=== PATIENT | female | born 1995 | race Caucasian/White ===

== ENCOUNTER 2017-02-25 07:57 | Day surgery (SDC) | payer BC ==
[2017-02-22 13:33] VITALS: BMI 24.1
[2017-02-25] MEDS ORDERED: PROPOFOL 20 ML ONE ×4 (08:47)
[2017-02-25 09:46] VITALS: TEMP 98.4
[2017-02-25 10:57] VITALS: BP 118/70; PULSE 86
--- NOTE | 2017-02-26 12:00 | PATH ---
Surgical Pathology Report Patient Name: PRIMITIVO JACKSON [facility]. Rec. #: [id number] /Age/Gender: 1995 (Age: 21) / F Account: [id number] Location: [facility] [place] Taken: 02/25/2017 Received: 02/25/2017 Reported: 02/26/2017 Physicians: Mike Castillo M.D. Specimen(s) Received A: BX BULB AND 2ND PORTION DUODENUM B: BX ANTRUM C: BX DISTAL AND MILD ESOPHAGUS Clinical History Preoperative diagnosis: Dysphagia, dyspepsia, acid reflux Postoperative diagnosis: Nonerosive reflux Final Diagnosis A. DUODENUM, SECOND PORTION AND BULB, BIOPSY: NONSPECIFIC ACUTE AND CHRONIC DUODENITIS. NO HISTOLOGIC EVIDENCE OF GLUTEN SENSITIVE ENTEROPATHY (CELIAC SPRUE) IDENTIFIED. B. STOMACH, ANTRUM, BIOPSY: GASTRIC ANTRAL MUCOSA WITH NO PATHOLOGIC CHANGES. IMMUNOSTAIN FOR H. PYLORI IS NEGATIVE. C. ESOPHAGUS, DISTAL AND MID, BIOPSY: SQUAMOUS EPITHELIUM WITH NO PATHOLOGIC CHANGES. NO INTESTINAL METAPLASIA IDENTIFIED (NO RAYMOND'S IDENTIFIED). NO EOSINOPHILIC ESOPHAGITIS IDENTIFIED. Electronically Signed Moe Lomeli M.D. Gross Description A. Received in formalin, labeled "biopsy bulb and second portion of duodenum" are 4 baca, irregular portions of soft tissue ranging from 0.2-0.5 cm. in greatest dimension. The specimens are submitted in toto in one cassette. B. Received in formalin, labeled "biopsy antrum" is a baca, irregular portion of soft tissue measuring 0.4 cm. in greatest dimension. The specimen is submitted in toto in one cassette. C. Received in formalin, labeled "biopsy distal and mid esophagus" are 4 baca, irregular portions of soft tissue ranging from 0.3-0.9 cm. in greatest dimension. The specimens are submitted in toto in one cassette. 02/25/201702/25/2017
== END 2017-02-25 10:57 | disposition home or self-care (01) ==
LOC: JASU-ENDO 07:57
PROVIDERS: ATTEND Internal Medicine Gastroenterology
PROC: 0DB68ZX Excision of Stomach, Via Natural or Artificial Opening Endoscopic, Diagnostic (ICD-10-PCS; 2017-02-25)
PROC: 0DB28ZX Excision of Middle Esophagus, Via Natural or Artificial Opening Endoscopic, Diagnostic (ICD-10-PCS; 2017-02-25)
PROC: 0DB38ZX Excision of Lower Esophagus, Via Natural or Artificial Opening Endoscopic, Diagnostic (ICD-10-PCS; 2017-02-25)
PROC: 0DB98ZX Excision of Duodenum, Via Natural or Artificial Opening Endoscopic, Diagnostic (ICD-10-PCS; principal; 2017-02-25 08:30)
DX: K21.0 Gastro-esophageal reflux disease with esophagitis (principal)
CPT/HCPCS: 84703; 88305-TC

== ENCOUNTER 2017-03-04 15:33 | Emergency (ER) | payer OTHER, BC ==
[2017-03-04] MEDS ORDERED: IBUPROFEN 600 MG TABLET (FP) PO ONE ×2 (15:54→16:40)
[2017-03-04 15:55] VITALS: BP 116/60; PULSE 86; TEMP 98.1; BMI 24.1
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
[2017-03-04] MEDS ORDERED: IBUPROFEN 100 MG/5 ML UNIT DOSE CUPS ONE (16:42)
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
== END 2017-03-04 17:04 | disposition home or self-care (01) ==
LOC: JERFT 15:33
DX: S66.911A Strain of unspecified muscle, fascia and tendon at wrist and hand level, right hand, initial encounter (principal); V43.62XA Car passenger injured in collision with other type car in traffic accident, initial encounter; Y93.89 Activity, other specified; Y92.410 Unspecified street and highway as the place of occurrence of the external cause
CPT/HCPCS: 73110-TC-RT; 73130-TC-RT; 84703; 99281-25

== ENCOUNTER 2018-04-28 17:38 | Emergency (ER) | payer BC | END 2018-04-28 19:41 | disposition home or self-care (01) | LOC: JERFT 17:38 ==

== ENCOUNTER 2018-05-03 12:57 | Emergency (ER) | payer BC ==
--- NOTE | 2018-05-03 13:00 | PDOC ---
History of Present Illness - General Chief Complaint: Cold Symptoms Stated Complaint: COUGH Time Seen by Provider: 05/03/18 12:59 History Source: Patient Exam Limitations: No Limitations - History of Present Illness Initial Comments: 23 yo F w a pmh of GERD presents to the ER after a week of generalized fatigue, subjective fevers, chills, headaches, bodyaches and myalgias, a dry cough, SOB and difficulty breathing, pleuritic chest pain which is worse when she coughs, nasal congestion, and rhinorrea. She went to the [facility] er earlier this week and had a flu swab done which was negative. She was treated with tamiflu anyways bc her symptoms were very suggestive. She finished the 5 day course of tamiflu yesterday but her cough and symptoms have only worsened to the point where she is extremely uncomfortable, cannot eat, feels nauseous and vomiting twice - once on Sat and again morning - both NBNB. She spoke with her PCP yesterday who told her to take mucinex and gave her a Z pack which she started taking this morning. She says the mucinex has not helped. She has been taking tylenol and motrin every day for her symptoms. She is here in the ER today because she is nervous she might have bronchitis/PNA and wants a chest x-ray taken. She denies having neck pain, blurry vision, a sore throat, abdominal pain, diarrhea, constipation, dysuria, frequency, urgency, back pain, recent travel, or any rashes. PCP: Madi Peña PSH: tonsillectomy and adenoidectomy at age 5 Allergies: Seasonal Social Hx: Denies smoking, drinking, or other substance usage LMP: Currently on it, started . Is regular. Past History - Past Medical History Allergies/Adverse Reactions: Allergies Allergy/AdvReac Type Severity Reaction Status Date / Time No Known Allergies Allergy Verified 05/03/18 12:58 Home Medications: Ambulatory Orders Azithromycin 500 mg PO DAILY 05/03/18 COPD: No GI Disorders: Yes (GERD) - Immunization History Immunization Up to Date: Yes - Suicide/Smoking/Psychosocial Hx Smoking Status: No Smoking History: Never smoked Have you smoked in the past 12 months: No Number of Cigarettes Smoked Daily: 0 Hx Alcohol Use: No Drug/Substance Use Hx: No Substance Use Type: None Review of Systems - Review of Systems Able to Perform ROS?: Yes Comments:: CONSTITUTIONAL: Present: Fevers, chills, fatigue EYES: Absent: visual changes ENT: Absent: ear pain, no sore throat CARDIOVASCULAR: Present: Chest pain Absent: no palpitations RESPIRATORY: Present: cough, SOB GI: Present: Nausea, vomiting Absent: abdominal pain, no constipation, no diarrhea GENITOURINARY: Absent: dysuria, no frequency, no hematuria MUSKULOSKELETAL: Present: Myalgia Absent: back pain, no arthralgia SKIN: Absent: rash NEURO: Present: headache *Physical Exam - Physical Exam Comments: GENERAL: Well-appearing, well-nourished. No apparent distress. HEENT: There is posterior oropharyngeal erythema and bilateral white exudate. Bilateral shotty lymphadenopathy in her neck. Normocephalic, atraumatic. PERRL, EOM intact. CARDIOVASCULAR: Normal S1, S2. Regular rate and rhythm. PULMONARY: No evidence of respiratory distress. Lungs clear to auscultation bilaterally. No wheezing, rales or rhonchi. ABDOMEN: Soft, non-distended, non-tender. No hepatosplenomegaly. EXTREMITIES: Normal ROM in all four extremities. No gross deformities. SKIN: Warm, dry. No rash NEUROLOGICAL: No focal neurological deficits. ED Treatment Course - LABORATORY CBC & Chemistry Diagram: 05/03/18 14:01 05/03/18 14:01 Medical Decision Making - Medical Decision Making 23 yo F w a pmh of GERD presents to the ER after a week of generalized fatigue, subjective fevers, chills, headaches, bodyaches and myalgias, a dry cough, SOB and difficulty breathing, pleuritic chest pain which is worse when she coughs, nasal congestion, and rhinorrea. She went to the [facility] er earlier this week and had a flu swab done which was negative. She was treated with tamiflu anyways bc her symptoms were very suggestive. She finished the 5 day course of tamiflu yesterday but her cough and symptoms have only worsened to the point where she is extremely uncomfortable, cannot eat, feels nauseous and vomiting twice - once on Sat night and again morning - both NBNB. She spoke with her PCP yesterday who told her to take mucinex and gave her a Z pack which she started taking this morning. She says the mucinex has not helped. She has been taking tylenol and motrin every day for her symptoms. She is here in the ER today because she is nervous she might have bronchitis/PNA and wants a chest x-ray taken. - VSS DDx IBNLT: PNA, bronchitis, URI, strep, EBV, influenza, pneumothorax, other viral vs bacterial uri infection. Plan: Cbc, Cmp, CXR, IV hydration, analgesia, rapid strep, re-assess. - Strep negative. - CBC and CMP unremarkable CXR shows a left sided infiltrate. Since she is already taking azithromycin will advise patient to continue course and allow 48 hours to see if she has improvement. If symptoms worsen I have advised patient to contact PCP to receive more broad coverage Abx. Pending Monospot. Patient will receive a call back if positive. *DC/Admit/Observation/Transfer Diagnosis at time of Disposition: Pneumonia - Discharge Dispostion Disposition: HOME Condition at time of disposition: Stable Decision to Admit order: No - Referrals Referrals: Madi Peña MD [Staff Physician] - - Patient Instructions Printed Discharge Instructions: Pneumonia-Adult Additional Instructions: You came into the ER with chest pain and a cough. We did a chest x-ray which shows that you have a pneumonia. Continue taking your Z pack as it will likely treat your pneumonia. If your symptoms do not improve in the next 48 hours please call up your primary care doctor to have him prescribe you a stronger antibiotic with broader coverage. Drink plenty of fluids and take advil/motrin/ibuprofen as needed for pain control. Please make sure to call back ER to follow up on your monospot test to see if you have Ebstein mccray Virus. Please make sure to schedule a follow up appointment with your primary care doctor in the next 3 to 5 days to make sure you are getting better and being taken care of. Come back to the ER if your fever worsens, your pain worsens, you start vomiting , have extreme pain, or any other new or worsening concerns. Thank you for coming to the [place] ER. We hope you feel better soon! Print Language: FRISIAN - Post Discharge Activity
[2018-05-03 13:05] VITALS: BMI 23.3
[2018-05-03] MEDS ORDERED: SODIUM CHLORIDE 0.9% 500 ML INFUS.BAG IV ONE (13:28)
[2018-05-03] MEDS ORDERED: ACETAMINOPHEN 1000 MG/100 ML VIAL (NON FORMULARY) IVPB ONE (13:38)
[2018-05-03 14:05] LABS: BASO % 0.3 % (0-2.0); EOS % 4.9 % (0-4.5); HEMATOCRIT 36.5 % (32.4-45.2); HEMOGLOBIN 12.1 GM/dl (10.7-15.3); LYMPH % 4.6 % (8-40); MCH 29.3 pg (25.7-33.7); MEAN CELL VOLUME 88.9 fl (80-96); MEAN PLT VOLUME 9.3 fl (7.5-11.1); MONO % 4.6 % (3.8-10.2); NEUT % 85.6 % (42.8-82.8); PLATELET COUNT 267 K/MM3 (134-434); RBC 4.11 M/mm3 (3.60-5.2); WHITE BLOOD COUNT 8.3 K/mm3 (4.0-10.8)
--- NOTE | 2018-05-03 14:05 | PDOC ---
Attending Attestation - Resident Resident Name: Bebeto Johnson - ED Attending Attestation I have performed the following: I have examined & evaluated the patient, The case was reviewed & discussed with the resident, I agree w/resident's findings & plan - HPI HPI: 05/03/18 14:03 23 yo F w h/o GERD presents to the ER after a week of generalized fatigue, subjective fevers, chills, headaches, bodyaches and myalgias, a dry cough, SOB and difficulty breathing, pleuritic chest pain which is worse when she coughs, nasal congestion, and rhinorrhea. last seen in the ED earlier this week on 04/28/18 - for similar sx, treated with tamiflu, despite neg flu test. finished the tamiflu x 5d. yesterday at PCP, Dr Peña. rx'd azithromycin and prn mucinex for the cough, with minimal sx improvement. 05/03/18 14:04 05/03/18 14:05 - Physicial Exam PE: 05/03/18 14:04 NAD, well appearing, PERRL, EOMI, MMM, nl conjunctiva, anicteric; +nasally congested. normal phonation. neck supple. lungs clear, RRR, abdomen soft nontender. MIRELES x4, no focal neuro deficits. No peripheral edema. normal color for ethnicity, WWP. 05/03/18 14:21 - Medical Decision Making 05/03/18 14:04 See HPI for details Vital signs reviewed, wnl. well appearing, nontoxic. ddx pneumonia, viral syndrome, pharyngitis, mononucleosis, URI, electrolyte/ metabolic derangements. doubt bacteremia or severe infection and most likely viral syndrome/URI. Prior notes reviewed, including admissions, discharges and consultations. laboratory results and imaging reviewed, basic labs and lytes wnl, neg strep test f/u cultures from throat. monospot pending, call with results if abnormal. CXR_left lobe infiltrate; no effusion; normal cardiac silhouette ED course: IVF, tylenol; clinically well appearing during visit. currently just started taking Zpak today, which she should continue for her pneumonia treatment, given 2 days for effect, if none, then call pmd, may change at that time salt water gargles and warm lemon tea is appropriate as well for soothing qualities for sore throat/cough. otc mucinex and /or antitussive such as dayquil /robitussin for the cough. minimize spread of infection given contagious nature, and cover mouth and wash hands adequately with soap and water. Stay well hydrated and rest. May use the albuterol inhaler every 4-6 hours as needed for cough and breathing to clear up your airways. Return precautions include respiratory distress, difficulty breathing, chest pain, lethargy, confusion, dehydration, high fevers or pain. Pt informed of my clinical impression, treatment recommendations and disposition plan. All questions answered to patient's satisfaction and expressed understanding and comfort with this. Reasons for returning to the ED sooner discussed with the patient otherwise, follow up with primary care physician. At the time of discharge, the patient is alert, clinically improved, tolerating po and verbalizes understanding of instructions. Patient does not suffer from an acute life-threatening medical condition at this time she is safe for outpatient follow-up with Dr Peña. 05/03/18 14:05 05/03/18 14:21 05/03/18 14:35
[2018-05-03] MEDS ORDERED: ACETAMINOPHEN INJECTION 100 ML IVPB ONE (14:09)
[2018-05-03 14:18] LABS: ALBUMIN 3.6 g/dl (3.4-5.0); ALK PHOS 88 U/L (45-117); ANION GAP 12 MMOL/L (8-16); BILIRUBIN,TOTAL 0.3 mg/dl (0.2-1); BLOOD UREA NITROGEN 7 mg/dl (7-18); CALCIUM 8.9 mg/dl (8.5-10); CHLORIDE 94 mmol/L (98-107); CO2 27 mmol/L (21-32); CREATININE 0.7 mg/dl (0.55-1.3); GLUCOSE,RANDOM 92 mg/dl (74-106); POTASSIUM 3.7 mmol/L (3.5-5.1); SGOT/AST 21 U/L (15-37); SGPT/ALT 19 U/L (13-61); SODIUM 133 mmol/L (136-145); TOT PROT 7.1 g/dl (6.4-8.2)
[2018-05-03 14:56] VITALS: BP 110/74; PULSE 90; TEMP 97.4
== END 2018-05-03 15:10 | disposition home or self-care (01) ==
LOC: FER 12:57
PROC: 3E033NZ Introduction of Analgesics, Hypnotics, Sedatives into Peripheral Vein, Percutaneous Approach (ICD-10-PCS; principal; 2018-05-03)
PROC: 3E0337Z Introduction of Electrolytic and Water Balance Substance into Peripheral Vein, Percutaneous Approach (ICD-10-PCS; 2018-05-03)
DX: J18.9 Pneumonia, unspecified organism (principal); K21.9 Gastro-esophageal reflux disease without esophagitis
CPT/HCPCS: 36415; 71046-TC-FY; 80053; 85025; 86308; 87070; 87880; 99283-25; J0131

== ENCOUNTER 2021-06-14 13:35 | Emergency (ER) | payer BC, OTHER ==
[2021-06-14 13:47] VITALS: BP 105/67; PULSE 93; TEMP 99.7; BMI 46.5
== END 2021-06-14 14:56 | disposition home or self-care (01) ==
LOC: FER 13:35
DX: J06.9 Acute upper respiratory infection, unspecified (principal)
CPT/HCPCS: 71046-TC-FY; 99283-25